=== PATIENT | female | born 1965 | race African-American/Black ===

== ENCOUNTER 2024-02-20 18:31 | Observation (INO) | payer OTHER ==
[2024-02-20 20:14] LABS: BASO % 0.4 % (0-2.0); EOS % 5.2 % (0-4.5); HEMATOCRIT 31.9 % (32.4-45.2); HEMOGLOBIN 10.8 GM/dL (10.7-15.3); MCH 28.2 pg (25.7-33.7); MEAN CELL VOLUME 82.9 fl (80-96); MEAN PLT VOLUME 10.1 fl (7.5-11.1); MONO % 12.7 % (3.8-10.2); NEUT % 52.7 % (42.8-82.8); PLATELET COUNT 157 10^3/uL (134-434); RBC 3.84 M/mm3 (3.60-5.2); RDW 14.9 % (11.6-15.6); WHITE BLOOD COUNT 5.9 K/mm3 (4.0-10.0)
[2024-02-20 20:47] LABS: CHLORIDE 110 mmol/L (98-107); POTASSIUM 4.3 mmol/L (3.5-5.1); SODIUM 143 mmol/L (136-145)
[2024-02-20 20:49] LABS: ALBUMIN 3.1 g/dl (3.4-5.0); CALCIUM 8.6 mg/dL (8.5-10.1)
[2024-02-20 20:50] LABS: ANION GAP 3 mmol/L (4-13); BLOOD UREA NITROGEN 19.4 mg/dL (7-18); CO2 30 mmol/L (21-32); GLUCOSE,RANDOM 169 mg/dL (74-106)
[2024-02-20 20:53] LABS: CREATININE 1.1 mg/dL (0.55-1.3); SGOT/AST 18 U/L (15-37); SGPT/ALT 24 U/L (13-61)
[2024-02-20 20:55] LABS: BILIRUBIN,TOTAL 0.2 mg/dL (0.2-1); TOT PROT 6.4 g/dl (6.4-8.2)
[2024-02-20 20:56] LABS: ALK PHOS 101 U/L (45-117)
[2024-02-20 21:07] LABS: EPI CELLS >36 /uL (0-25.1); HYALINE CASTS 0 /uL (0-3.1); PH,URINE 5.5 (5.0-8.0); URINE APPEARANCE CLEAR; URINE BACTERIA 336 /uL (0-1359); URINE BILIRUBIN NEGATIVE (NEGATIVE); URINE COLOR YELLOW; URINE GLUCOSE (UA) NEGATIVE (NEGATIVE); URINE KETONE NEGATIVE (NEGATIVE); URINE LEUK ESTERASE 3+ (NEGATIVE); URINE NITRITE NEGATIVE (NEGATIVE); URINE PROTEIN NEGATIVE (NEGATIVE); URINE RBC 12 /uL (0-23.9); URINE UROBILINOGEN 0.2 mg/dL (0.2-1.0); URINE WBC 224 /uL (0-25.8)
[2024-02-20] MEDS: OLANZapine 10 MG TABLET PO ONE (21:07)
[2024-02-20 21:12] LABS: COCAINE, UR NEGATIVE (NEGATIVE); URINE BARBITURATES NEGATIVE (NEGATIVE)
[2024-02-20 21:13] LABS: METHADONE, UR NEGATIVE (NEGATIVE)
[2024-02-20 21:14] LABS: OPIATES, URI NEGATIVE (NEGATIVE); PHENCYCLIDINE,URINE POSITIVE (NEGATIVE); URINE AMPHETAMINES NEGATIVE (NEGATIVE); URINE BENZODIAZEPINES POSITIVE (NEGATIVE)
[2024-02-20] MEDS ORDERED: CEFTRIAXONE 1 G/50 ML PREMIX 50 ML IVPB ONE (22:04)
[2024-02-20] MEDS: CEFTRIAXONE 1,000 MG in DEXTROSE 5%-WATER - 50 ML IVPB ONE (22:18)
[2024-02-21 04:24] VITALS: BMI 38.5
[2024-02-21] MEDS: ACETAMINOPHEN 325 MG TABLET (FP) PO ONE (06:16)
[2024-02-21] MEDS: INSULIN ASPART SLIDING SCALE (NOVOLOG) 1 VIAL SQ SCH (07:55)
[2024-02-21 10:00] LABS: HEMATOCRIT 31.2 % (32.4-45.2); HEMOGLOBIN 10.7 GM/dL (10.7-15.3); MCH 28.5 pg (25.7-33.7); MCHC 34.3 g/dl (32.0-36.0); PLATELET COUNT 154 10^3/uL (134-434); RBC 3.76 M/mm3 (3.60-5.2); RDW 14.9 % (11.6-15.6); WHITE BLOOD COUNT 6.5 K/mm3 (4.0-10.0)
[2024-02-21 10:25] LABS: POTASSIUM 4.1 mmol/L (3.5-5.1)
[2024-02-21 10:30] LABS: BLOOD UREA NITROGEN 19.3 mg/dL (7-18); CALCIUM 8.9 mg/dL (8.5-10.1)
[2024-02-21 10:31] LABS: MAGNESIUM 1.9 mg/dL (1.8-2.4)
[2024-02-21 10:33] LABS: PHOSPHOROUS 3.4 mg/dL (2.5-4.9)
[2024-02-21] MEDS: ENOXAPARIN NA (PORCINE) 40 MG/0.4 ML DISP.SYRIN SQ SCH (11:00)
[2024-02-21] MEDS: LORATADINE 10 MG TABLET PO SCH (12:16)
[2024-02-21] MEDS: LEVOTHYROXINE NA 50 MCG TABLET (FP) PO SCH (12:16)
[2024-02-21] MEDS: ESCITALOPRAM OXALATE 20 MG TABLET PO SCH (12:16)
[2024-02-21] MEDS: CEFTRIAXONE 1 G/50 ML PREMIX 50 ML IVPB SCH (12:17)
[2024-02-21] MEDS: TRIAMTERENE AND HCTZ - 37.5 MG/25 MG CAPSULE PO SCH (13:49)
[2024-02-21] MEDS: OLANZapine 5 MG TABLET PO SCH (21:05)
[2024-02-21] MEDS: IBUPROFEN 400 MG TABLET (FP) PO PRN (21:34)
[2024-02-22 06:31] VITALS: RESP 18
[2024-02-22 07:39] LABS: BASO % 0.8 % (0-2.0); EOS % 5.9 % (0-4.5); HEMATOCRIT 33.5 % (32.4-45.2); HEMOGLOBIN 11.2 GM/dL (10.7-15.3); LYMPH % 31.5 % (8-40); MCH 27.7 pg (25.7-33.7); MCHC 33.3 g/dl (32.0-36.0); MEAN CELL VOLUME 83.3 fl (80-96); MEAN PLT VOLUME 10.1 fl (7.5-11.1); MONO % 13.5 % (3.8-10.2); NEUT % 48.3 % (42.8-82.8); PLATELET COUNT 165 10^3/uL (134-434); RBC 4.02 M/mm3 (3.60-5.2); RDW 14.6 % (11.6-15.6); WHITE BLOOD COUNT 5.1 K/mm3 (4.0-10.0)
[2024-02-22 08:07] LABS: POTASSIUM 3.8 mmol/L (3.5-5.1)
[2024-02-22 08:36] LABS: BLOOD UREA NITROGEN 19.6 mg/dL (7-18); CALCIUM 8.6 mg/dL (8.5-10.1)
[2024-02-22 08:37] LABS: ALBUMIN 2.9 g/dl (3.4-5.0)
[2024-02-22 08:39] LABS: CREATININE 0.9 mg/dL (0.55-1.3)
[2024-02-22 08:41] LABS: BILIRUBIN,TOTAL 0.3 mg/dL (0.2-1); TOT PROT 6.2 g/dl (6.4-8.2)
[2024-02-22 08:43] VITALS: BP 103/66; PULSE 93; TEMP 97.7
== END 2024-02-22 13:57 | disposition home or self-care (01) ==
LOC: JER 18:31 → JERBED 21:21 → J7W 02-21 03:57
PROVIDERS: ADMIT Internal Medicine
PROC: 3E03329 Introduction of Other Anti-infective into Peripheral Vein, Percutaneous Approach (ICD-10-PCS; principal; 2024-02-20)
PROC: 3E023GC Introduction of Other Therapeutic Substance into Muscle, Percutaneous Approach (ICD-10-PCS; 2024-02-20)
DX: F19.99 Other psychoactive substance use, unspecified with unspecified psychoactive substance-induced disorder (principal); F10.90 Alcohol use, unspecified, uncomplicated; F15.959 Other stimulant use, unspecified with stimulant-induced psychotic disorder, unspecified; I10 Essential (primary) hypertension; R82.71 Bacteriuria; S09.90XA Unspecified injury of head, initial encounter; E78.5 Hyperlipidemia, unspecified; W18.39XA Other fall on same level, initial encounter; Y93.89 Activity, other specified; Y92.89 Other specified places as the place of occurrence of the external cause; E03.9 Hypothyroidism, unspecified; F31.9 Bipolar disorder, unspecified
CPT/HCPCS: 36415; 70450-TC; 71101-TC-RT-FY; 72050-TC-FY; 73030-TC-RT-FY; 73060-TC-RT-FY; 73090-TC-RT-FY; 73502-TC-RT-FY; 80048; 80053; 80307; 81003; 82962; 83036; 83735; 84100; 84439; 84443; 85025; 85027; 87086; 93005; 93010; 96365; 96366; 96372; 99285-25; G0378